=== PATIENT | male | born 1995 | race Caucasian/White ===

== ENCOUNTER 2017-02-26 16:23 | Emergency (ER) | payer OTHER ==
[~2017-02-26] VITALS: Ht 190.5 cm; Wt 102.0 kg
[2017-02-26] MEDS ORDERED: KETOROLAC 30 MG/1 ML ONE (16:45)
[2017-02-26] MEDS ORDERED: DIAZEPAM 5 MG/ML, 2ML IVPush ONE (17:00)
[2017-02-26] MEDS ORDERED: SODIUM CHLORIDE FLUSH 10ML SYR IVF ONE (17:00)
[2017-02-26] MEDS ORDERED: KETOROLAC 30 MG/1 ML IVPush ONE (17:00)
[2017-02-26] MEDS ORDERED: MORPHINE SULFATE 4 MG/ML, 1ML ONE ×2 (17:36→18:18)
[2017-02-26] MEDS ORDERED: ONDANSETRON 2MG/ML, 2ML ONE (17:37)
[2017-02-26] MEDS: MORPHINE SULFATE 4 MG/ML, 1ML IVPush PRN ×2 (17:42→18:21)
[2017-02-26] MEDS ORDERED: ONDANSETRON 2MG/ML, 2ML IVPush ONE (18:00)
[2017-02-26 19:51] VITALS: BP 123/65
== END 2017-02-26 19:52 | disposition home or self-care (01) ==
LOC: ED 16:38
DX: S39.012A Strain of muscle, fascia and tendon of lower back, initial encounter (principal); X58.XXXA Exposure to other specified factors, initial encounter; Y93.89 Activity, other specified; Y99.8 Other external cause status; Y92.39 Other specified sports and athletic area as the place of occurrence of the external cause
CPT/HCPCS: 96374; 96375; 96376; 99284; J1885; J2405; J3360

== ENCOUNTER 2020-06-20 03:11 | Emergency (ER) | payer OTHER ==
[~2020-06-20] VITALS: Ht 190.5 cm; Wt 112.6 kg
[2020-06-20] MEDS ORDERED: SODIUM CHLORIDE 0.9% 1,000ML IVBOLUS ONE (03:30)
[2020-06-20] MEDS ORDERED: SODIUM CHLORIDE FLUSH 10ML SYR IVF ONE (03:30)
[2020-06-20] MEDS ORDERED: ONDANSETRON 2MG/ML, 2ML IVPush ONE (03:30)
[2020-06-20] MEDS ORDERED: ONDANSETRON 2MG/ML, 2ML ONE (03:39)
[2020-06-20 03:47] LABS: BASOPHILS % (AUTO) 0 % (0-1); EOSINOPHILS % (AUTO) 1 % (1-7); LYMPHOCYTES % (AUTO) 31 % (22-44); MEAN CORPUSCULAR HGB CONC 34.5 g/dL (33.2-36.2); MEAN PLATELET VOLUME 7.1 fL (7.4-10.4); MONOCYTES % (AUTO) 6 % (2-9); NEUTROPHILS % (AUTO) 62 % (42-75); PLATELET COUNT 238 x10^3/uL (130-400); RED BLOOD COUNT 4.88 x10^6/uL (4.38-5.82)
[2020-06-20 03:49] VITALS: BP 141/80
--- NOTE | 2020-06-20 03:52 | NUR ---
25 YO MALE CC OF ETOH WITHDRAW WITH INCREASING VOMITING TODAY. PT STATES HE NORMALLY DRINKS 3 PINTS OF VODKA DAILY, HAD ONE PINT YESTERDAY AT 1800 WHICH WAS HIS LAST DRINK. VERBALIZES WANTING TO STOP. COMPLAINS THAT VOMITING IS INCREASING IN FREQUENCY EVERY 2-3 HRS AND HE HAS NOTICED KATHYA RED BLOOD OVER LAST 3 DAYS. ALSO STATES HE HAS BEEN HAVING BLOODY DIARRHEA. 6/10 MIDDLE ABD AND ESOPHAGES PAIN. PT HAS VOMITED TWICE IN ROOM APPROX 100 MLS, WHITE/CLEAR LIQUID VOMIT, NO BLOOD NOTED. MOTHER AT BEDSIDE.
[2020-06-20 03:53] LABS: MD NO
[2020-06-20 03:55] LABS: ALANINE AMINOTRANSFERASE 35 U/L (12-78); ALBUMIN 4.3 g/dL (3.4-5.0); ANION GAP 9 mmol/L (5-15); CALCIUM 8.8 mg/dL (8.5-10.1); CHLORIDE 104 mmol/L (98-107); CREATININE 1.06 mg/dL (0.7-1.3)
[2020-06-20 03:57] LABS: ALKALINE PHOSPHATASE 64 U/L (45-117); BILIRUBIN,TOTAL 0.6 mg/dL (0.2-1.0); TOTAL PROTEIN 7.5 g/dL (6.4-8.2)
== END 2020-06-20 05:24 | disposition home or self-care (01) ==
LOC: ED 04:30
DX: F10.120 Alcohol abuse with intoxication, uncomplicated (principal); R11.2 Nausea with vomiting, unspecified; Y90.0 Blood alcohol level of less than 20 mg/100 ml
CPT/HCPCS: 36415; 80053; 80307; 83690; 85025; 96361; 96374; 99285; J2405; J7030

== ENCOUNTER 2020-08-20 22:00 | Emergency (ER) | payer OTHER ==
[~2020-08-20] VITALS: Ht 190.5 cm; Wt 108.0 kg
[2020-08-20 22:15] VITALS: BP 141/90
[2020-08-20] MEDS ORDERED: THIAMINE 100MG TABLET PO ONE (22:30)
[2020-08-20 23:15] LABS: BASOPHILS % (AUTO) 1 % (0-1); EOSINOPHILS % (AUTO) 0 % (1-7); LYMPHOCYTES % (AUTO) 29 % (22-44); MEAN CORPUSCULAR HEMOGLOBIN 31.3 pg (27.5-34.5); MEAN CORPUSCULAR HGB CONC 35.2 g/dL (33.2-36.2); MEAN PLATELET VOLUME 7.6 fL (7.4-10.4); MONOCYTES % (AUTO) 4 % (2-9); NEUTROPHILS % (AUTO) 66 % (42-75); PLATELET COUNT 309 x10^3/uL (130-400); RED BLOOD COUNT 5.42 x10^6/uL (4.38-5.82); RED CELL DISTRIBUTION WIDTH 12.9 % (9.4-14.8)
[2020-08-20 23:21] LABS: MD NO
[2020-08-20 23:24] LABS: ALANINE AMINOTRANSFERASE 35 U/L (12-78); ANION GAP 9 mmol/L (5-15); CALCIUM 9.7 mg/dL (8.5-10.1); CHLORIDE 100 mmol/L (98-107); CREATININE 1.32 mg/dL (0.7-1.3)
[2020-08-20 23:27] LABS: ALKALINE PHOSPHATASE 67 U/L (45-117); BILIRUBIN,TOTAL 0.6 mg/dL (0.2-1.0); TOTAL PROTEIN 8.5 g/dL (6.4-8.2)
== END 2020-08-21 01:43 | disposition left against medical advice (07) ==
LOC: ED 08-21 01:00
DX: F10.10 Alcohol abuse, uncomplicated (principal); Y90.9 Presence of alcohol in blood, level not specified
CPT/HCPCS: 36415; 80053; 80320; 83690; 85025; 99283; G0480

== ENCOUNTER 2020-10-20 09:00 | Emergency (ER) | payer OTHER ==
[~2020-10-20] VITALS: Ht 190.5 cm; Wt 107.3 kg
--- NOTE | 2020-10-20 09:18 | NUR ---
PROVIDER AT BEDSIDE FOR ASSESSMENT AND TO DISCUSS PLAN OF CARE
--- NOTE | 2020-10-20 09:18 | NUR ---
PT COMES IN C/O ABD PAIN W/ "COFFEE GROUND AND BRIGHT RED BLOOD" VOMITING. PT STATES HE BEGAN VOMITING AT APPROX. 1030 LAST NIGHT W/ VOMITING BEGINNING AROUND MIDNIGHT. PT STATES HE DRANK 1 PINT OF VODKA. STATES HE TAKES ANTABUSE FOR ETOH AND WAS CLEAN FOR "55 DAYS BEFORE LAST NIGHT". MONITORS CONNECTED. WARM BLANKET PROVIDED
[2020-10-20] MEDS ORDERED: MAALOX/HYOSCYAMINE/LIDOCAINE 45 ML BTL ONE (09:26)
[2020-10-20] MEDS ORDERED: ONDANSETRON 2MG/ML, 2ML ONE (09:26)
[2020-10-20] MEDS ORDERED: FAMOTIDINE 20 MG/2 ML ONE (09:27)
[2020-10-20] MEDS ORDERED: SODIUM CHLORIDE 0.9% 1,000ML IVBOLUS ONE (09:30)
[2020-10-20] MEDS ORDERED: FAMOTIDINE 20 MG/2 ML IV ONE (09:30)
[2020-10-20] MEDS ORDERED: MAALOX/HYOSCYAMINE/LIDOCAINE 45 ML BTL PO ONE (09:30)
[2020-10-20] MEDS ORDERED: ONDANSETRON 2MG/ML, 2ML IVPush ONE (09:30)
--- NOTE | 2020-10-20 09:50 | NUR ---
pt in bed iv started by tech. iv fluids started.
[2020-10-20 10:01] LABS: ALANINE AMINOTRANSFERASE 29 U/L (12-78); ALBUMIN 5.1 g/dL (3.4-5.0); ANION GAP 13 mmol/L (5-15); CALCIUM 9.8 mg/dL (8.5-10.1); CHLORIDE 102 mmol/L (98-107); CREATININE 1.32 mg/dL (0.7-1.3)
[2020-10-20 10:10] LABS: ALKALINE PHOSPHATASE 67 U/L (45-117); BILIRUBIN,TOTAL 0.6 mg/dL (0.2-1.0); TOTAL PROTEIN 8.1 g/dL (6.4-8.2)
[2020-10-20 10:41] LABS: BASOPHILS % (AUTO) 0 % (0-1); EOSINOPHILS % (AUTO) 0 % (1-7); LYMPHOCYTES % (AUTO) 6 % (22-44); MEAN CORPUSCULAR HGB CONC 35.3 g/dL (33.2-36.2); MEAN PLATELET VOLUME 7.7 fL (7.4-10.4); MONOCYTES % (AUTO) 4 % (2-9); NEUTROPHILS % (AUTO) 90 % (42-75); PLATELET COUNT 223 x10^3/uL (130-400); RED BLOOD COUNT 4.81 x10^6/uL (4.38-5.82); RED CELL DISTRIBUTION WIDTH 12.5 % (9.4-14.8)
[2020-10-20 10:42] LABS: MD NO
--- NOTE | 2020-10-20 10:48 | NUR ---
PT RESTING IN BED LABS REDRAWN
[2020-10-20 11:12] VITALS: BP 140/71
--- NOTE | 2020-10-20 11:52 | NUR ---
PT WALKED OUT WITH STEADY GAIT. GIVEN RX. DISCUESSED IF S&S WORSEN RETURN TO THE ER
== END 2020-10-20 11:52 | disposition home or self-care (01) ==
LOC: ED 09:54
DX: K29.20 Alcoholic gastritis without bleeding (principal); F10.132 Alcohol abuse with withdrawal with perceptual disturbance; K92.0 Hematemesis; G89.29 Other chronic pain; R10.12 Left upper quadrant pain; Y90.0 Blood alcohol level of less than 20 mg/100 ml
CPT/HCPCS: 36415; 80053; 83690; 85025; 96361; 96374; 96375; 99284; J2405; J7030